=== PATIENT | male | born 1960 | race Caucasian/White ===

== ENCOUNTER → 2023-07-03 10:33 | Outpatient (REF) | payer BC, SELFPAY | LOC: HWRAD 10:33 | PROVIDERS: ATTENDING PHYSICIAN Family Medicine; REFERRING PHYSICIAN Internal Medicine Gastroenterology | DX: R10.9 Unspecified abdominal pain (principal); R19.5 Other fecal abnormalities; D64.9 Anemia, unspecified | CPT/HCPCS: 76700 ==

== ENCOUNTER → 2023-07-05 10:55 | Outpatient (REF) | payer BC, SELFPAY | LOC: HWRAD 10:55 | PROVIDERS: ATTENDING PHYSICIAN Family Medicine; REFERRING PHYSICIAN Internal Medicine Gastroenterology | DX: R10.9 Unspecified abdominal pain (principal); R19.5 Other fecal abnormalities; D64.9 Anemia, unspecified | CPT/HCPCS: 74150 ==

== ENCOUNTER → 2024-10-16 13:14 | Outpatient (REF) | payer MEDICARE, BC, SELFPAY | LOC: HWCARD 13:14 | PROVIDERS: ATTENDING PHYSICIAN Anesthesiology; FAMILY PHYSICIAN Family Medicine | DX: Z01.810 Encounter for preprocedural cardiovascular examination (principal) | CPT/HCPCS: 93005 ==